=== PATIENT | female | born 1940 | race Caucasian/White ===

== ENCOUNTER 2024-04-11 11:00 | Outpatient (CLI) | payer OTHER, SELFPAY ==
--- NOTE | 2024-04-11 11:15 | CRLHL7_ITS ---
For Patients: As a result of the Century Cures Act, medical imaging exams and procedure reports are released immediately into your electronic medical record. You may view this report before your referring provider. If you have questions, please contact your health care provider. LEFT BREAST ULTRASOUND CLINICAL HISTORY: LEFT breast lump. Follow-up abnormal MRI. COMPARISON: MRI 03/29/2024. TECHNIQUE: Real-time ultrasound imaging of the LEFT breast with imaging documentation. Scanning was performed by both the technologist and the radiologist. FINDINGS: Targeted sonogram to the upper LEFT breast corresponding with the area of palpable concern performed. In this location, there is bulging of the silicone implant. No suspicious mass. The silicone implant is partially collapsed and silicone extends beyond the implant deep to the fibrous capsule. Targeted sonogram to the lower LEFT breast performed in the area of concern demonstrates a focal masslike area silicone/scar tissue located within the capsule measuring 2.0 x 2.0 x 2.4 cm. No free silicone. IMPRESSION: Partial collapse of the LEFT silicone implant with associated implant rupture as there is silicone extending beyond the margin of the implant which is contained by the overlying capsule. A masslike area is present within the inferior breast causing the MRI finding. No suspicious mass is present. A surgical consultation is suggested for further evaluation of implant removal. RECOMMENDATIONS: Surgical consultation. Results and recommendations were discussed with the patient at the time of the exam. BI-RADS Category 2: Benign A lay language report of this examination will be provided to the patient. Dictated by Brendan Stern MD @ 04/11/2024 12:17:35 PM [email or web address]/Dictated by: Brendan Stern MD @ 04/11/2024 12:17:00 PM (Electronically Signed)
== END 2024-04-11 11:01 | disposition home or self-care (01) ==
LOC: US 11:12
PROVIDERS: PCP Internal Medicine; Visit Provider Internal Medicine
DX: N63.25 Unspecified lump in the left breast, overlapping quadrants (principal); T85.41XA Breakdown (mechanical) of breast prosthesis and implant, initial encounter
CPT/HCPCS: 76642